=== PATIENT | female | born 1935 | race Caucasian/White ===

== ENCOUNTER → 2017-02-10 | Outpatient (CLI) | payer MEDICARE, OTHER ==
--- NOTE | 2017-02-10 16:46 | Diagnostic Imaging Report ---
CLINICAL INDICATION: Patient has total spine pain. No known injury and no previous spine surgery. EXAM: MRI of the cervical spine performed without IV contrast. Sequences include sagittal T1, sagittal T2, sagittal T2 fat-sat, and axial T2. COMPARISON: MRI of the cervical spine without contrast dated 08/16/2007. FINDINGS: There is no acute cervical spine fracture. There is no abnormal cervical vertebral T1 and T2 signal. There is no significant paraspinal soft tissue abnormality. Limited visualization of the posterior fossa is unremarkable. Cervical spinal cord has normal cord caliber and signal. There is multilevel cervical spine degenerative disease which has progressed compared to the prior study. C1-C2: There is increased size of the periodontal pannus. There are no gross erosive changes seen. C2-C3: Stable mild diffuse disc bulge with small posterior disc extrusion/herniation. There is progression of bilateral facet arthropathy which is mild. There is progression of ligamentum flavum buckling with mild central canal narrowing. There is no significant neuroforaminal narrowing. C3-C4: There is mild to moderate left facet arthropathy and mild right facet arthropathy which has progressed. There is mild bilateral neuroforaminal narrowing which has progressed. There is progression of ligamentum flavum buckling with mild central canal narrowing. C4-C5: There is interval development of moderate left facet arthropathy/hypertrophy and mild right facet arthropathy and ligamentum flavum buckling. There is mild to moderate central canal narrowing, moderate to severe left neuroforaminal narrowing and moderate right neuroforaminal narrowing which has slightly progressed. C5-C6: There is interval development of grade 1 retrolisthesis of C5 on C6. There is diffuse disc bulge with mild loss of intervertebral disc height and small disc spurs extending posteriorly and into the foraminal regions bilaterally. These findings have slightly progressed. Again seen ligamentum flavum buckling. There is moderate to severe central canal narrowing which has slightly progressed. There is severe right neuroforaminal narrowing and at least mild left neuroforaminal narrowing. C6-C7: There is interval development of diffuse disc bulge with small posterior disc extrusion/herniation which has slightly progressed. Again seen ligamentum flavum buckling with moderate to severe central canal narrowing which has slightly progressed. There is progression of now severe bilateral neuroforaminal narrowing. C7-T1: There is development of mild ligamentum flavum buckling, severe left facet arthropathy/hypertrophy, and moderate right facet arthropathy. There is mild central canal narrowing and at least moderate bilateral neuroforaminal narrowing. IMPRESSION: 1: There is overall progression of moderate to severe multilevel cervical spine degenerative disc disease which is described in detail above. 2: There is interval development of grade 1 retrolisthesis of C5 on C6. Dictated by: Dictated on workstation # [id number]
--- NOTE | 2017-02-10 17:20 | Diagnostic Imaging Report ---
CLINICAL INDICATION: Patient has total spine pain. No known injury. EXAM: MRI of the thoracic spine performed without IV contrast. Sequences include sagittal T1, sagittal T2, sagittal T2 fat-sat, and axial T2. COMPARISON: X-ray of the thoracic spine dated 01/14/2016. FINDINGS: There is no acute thoracic spine fracture or dislocation. There is mixed Modic type I/type II degenerative signal changes anteriorly seen from the T6 through T8 levels. There are thoracic spine degenerative spurs predominantly involving the T4 through T11 levels. There is no significant paraspinal soft tissue abnormality. The thoracic spinal cord has normal appearance with no abnormal cord signal changes. There is moderate loss of intervertebral disc height at the T9-T10 level and mild loss of intervertebral disc height at the T6 through T8 levels. There is a small posterior disc bulge at the T3-T4 and T10-T11 levels, which show no significant central canal narrowing. There are diffuse disc bulges with posterior disc protrusions/herniations at the T7-T8, T8-T9, and T9-T10 levels. There is also mild ligamentum flavum buckling at the T9-T10 level, which causes [id number] central canal narrowing at the T9-T10 level. The remainder of the other levels demonstrate only mild central canal narrowing. There is multilevel bilateral facet arthropathy. There is at least moderate bony neural foraminal narrowing involving the right T3-T4 and T4-T5 neural foramina. IMPRESSION: 1: There is no acute thoracic spine fracture or dislocation. 2: Multilevel thoracic spine degenerative disc disease, as described above. 3: There is [id number] central canal narrowing at the T9-T10 level due to diffuse disc bulge, posterior herniation, and ligamentum flavum buckling. 4: There is moderate right neural foraminal narrowing at the T3-T4 and T4-T5 levels. Dictated by: Dictated on workstation # [id number]
--- NOTE | 2017-02-10 17:28 | Diagnostic Imaging Report ---
PROCEDURE: MRI lumbar spine. TECHNIQUE: Multiplanar, multisequence MRI of the lumbar spine was performed without contrast. INDICATION: Pain along spine. Occasionally radiating into right leg. Comparison with 03/11/2016. FINDINGS: Good alignment of the vertebral bodies. Body heights well maintained. Marrow signal remains normal. Facets show good alignment without evidence of pars defect. The conus medullaris and cauda equina appear normal. L1-L2: The disc shows normal contour. Minimal facet hypertrophy with no stenosis. L2-L3: Disc shows normal contour with mild posterior facet and ligamentous hypertrophy without significant encroachment. L3-L4: There is desiccation of the disc with settling of the disc space. There is mild broad-based disc bulge with moderate posterior facet and ligamentous hypertrophy. This is causing mild to moderate encroachment upon the neuroforamen bilaterally. L4-L5: There is central disc herniation. There is posterior facet and ligamentous hypertrophy which is causing moderate encroachment upon the lateral recesses and neuroforamen bilaterally. Disc does protrude laterally into the neuroforamen bilaterally as well. L5-S1: Desiccation of the disc with some settling of the disc space. Mild broad-based disc bulge. Moderate posterior facet and ligamentous hypertrophy present causing mild to moderate encroachment upon the neuroforamen bilaterally. IMPRESSION: Degenerative disc disease L3-S1. Most prominent findings are at L4-L5 with central disc herniation as well as some lateral disc protrusion into the neuroforamen with associated facet and ligamentous hypertrophy causing moderate foraminal encroachment bilaterally. No central canal stenosis. The minimal AP central canal at L4-L5 is 9 mm. There has been mild progression of degenerative disc and hypertrophic facet changes at L4-L5 when compared with 02/2016 exam. Dictated by: Dictated on workstation # [id number]
== END ==
LOC: RAD 15:06
PROVIDERS: ATTEND Orthopaedic Surgery Orthopaedic Surgery of the Spine
DX: M51.37 Other intervertebral disc degeneration, lumbosacral region (principal); M51.34 Other intervertebral disc degeneration, thoracic region; M50.322 Other cervical disc degeneration at C5-C6 level; M51.26 Other intervertebral disc displacement, lumbar region; M51.24 Other intervertebral disc displacement, thoracic region; M48.04 Spinal stenosis, thoracic region; M43.12 Spondylolisthesis, cervical region
CPT/HCPCS: 72141; 72146; 72148

== ENCOUNTER → 2018-03-09 | Outpatient (CLI) | payer MEDICARE, OTHER ==
--- NOTE | 2018-03-09 14:40 | Diagnostic Imaging Report ---
CLINICAL INDICATION: Patient with radiculopathy. EXAM: MRI of the lumbar spine performed without IV contrast. Sagittal T2, sagittal T1, sagittal T2 fat-sat, and axial T2. COMPARISON: MRI of the lumbar spine without contrast dated 02/10/2017. FINDINGS: Five lumbar-type vertebrae are identified. Lumbar spine has normal alignment with no fracture or dislocation. There are minimal Modic type I degenerative signal changes involving the left lateral upper aspect of the L5 vertebra. Otherwise, the lumbar vertebrae have normal T1 and T2 signal. The visualized portions of the distal spinal cord, conus medullaris, and cauda equina have normal anatomic appearance. The conus medullaris tip is seen at the L1-L2 intervertebral level. No paraspinal soft tissue abnormality is seen. There are mildly hypertrophic spurs seen throughout the lumbar spine. There is multilevel lower lumbar facet arthropathy. L1-L2: There is a very subtle posterior disc bulge at the L1-L2 level. There is no significant central spinal canal or neural foramen narrowing. L2-L3: There is stable mild bilateral facet arthropathy. There is no significant central spinal canal or neural foramen narrowing. L3-L4: There is a stable mild diffuse disc bulge and mild bilateral facet arthropathy. There is stable minimal impression upon the thecal sac. There is stable mild to moderate bilateral neuroforaminal narrowing. Stable mild bilateral facet arthropathy. L4-L5: There is a diffuse disc bulge and interval increased size of the now moderate central posterior disc extrusion/herniation with caudal disc migration. The extruded material measures 9 mm x 10 mm x 12 mm (AP x Trans x CC). There is associated moderate encroachment upon the central canal. There is concern for impingement upon the non-exited bilateral L5 nerve roots. There is mild to moderate right neuroforaminal narrowing and moderate left neuroforaminal narrowing. L5-S1: Stable diffuse disc bulge with moderate loss of intervertebral disc height. There are disc spurs seen posteriorly and extending into the foraminal regions bilaterally. There is stable moderate to severe right neuroforaminal narrowing and moderate left neuroforaminal narrowing. There is no significant central canal narrowing. IMPRESSION: 1: Interval progression of L4-L5 posterior disc extrusion/herniation with now caudal disc migration. There is also concern for encroachment upon the non-exited bilateral L5 nerve roots. There is moderate central canal stenosis at the L4-L5 level. 2: The remainder of the lumbar spine degenerative changes have not significantly changed in the interim. Dictated by: Dictated on workstation # [id number]
== END ==
LOC: RAD 13:14
PROVIDERS: ATTEND Physician Assistant
DX: M48.061 Spinal stenosis, lumbar region without neurogenic claudication (principal); M47.816 Spondylosis without myelopathy or radiculopathy, lumbar region; M99.53 Intervertebral disc stenosis of neural canal of lumbar region; M51.26 Other intervertebral disc displacement, lumbar region
CPT/HCPCS: 72148

== ENCOUNTER → 2021-12-08 | Outpatient (CLI) | payer MEDICARE, OTHER ==
[~2021-12-08] MED LIST: IOHEXOL 350 MG/ML 100 ML (OMNIPAQUE 350) VIAL IV ONE; NS 100 ML (IVPB) BAG IV ONE
--- NOTE | 2021-12-08 12:15 | Diagnostic Imaging Report ---
EXAM: CTA neck. TECHNIQUE: 3D reconstructions, including MIPS, and the angiographic images are created and reviewed by the radiologist. All CT scans use one or more of the following dose optimizing techniques: automated exposure control, MA and/or KvP adjustment based on patient size and exam type or iterative reconstruction. INDICATION: Dizzy spells. Falling. Right carotid artery stenosis. COMPARISON: None available. FINDINGS: CTA of the neck demonstrates a conventional aortic arch. Calcified atherosclerotic disease results in 70 to 89% narrowing of the proximal right internal carotid artery which is retropharyngeal in its course. There is less than 50% narrowing of the left internal carotid artery origin. 50 to 69% narrowing of the right subclavian origin. The vertebral arteries are widely patent. No evidence of aneurysm or dissection in the neck. The visualized [place] is intact. Moderate spondylotic changes in the cervical spine. No high-grade spinal canal stenosis is evident by CT. No acute osseous findings. The mastoids are clear. Mild mucosal thickening in the partially visualized ethmoid sinuses. No acute findings in the neck. The lung apices are clear. IMPRESSION: 1. 70 to 89% narrowing of the right proximal internal carotid artery. 2. 50 to 69% narrowing of the right subclavian artery origin. Dictated by: Dictated on workstation # [id number]
== END ==
LOC: RAD 10:15
PROVIDERS: ATTEND Nurse Practitioner
DX: I65.23 Occlusion and stenosis of bilateral carotid arteries (principal); I25.10 Atherosclerotic heart disease of native coronary artery without angina pectoris
CPT/HCPCS: 70498

== ENCOUNTER → 2023-04-11 | Outpatient (CLI) | payer MEDICARE ==
--- NOTE | 2023-04-11 16:33 | Diagnostic Imaging Report ---
INDICATION: Decreased breath sounds at left lung base. TECHNIQUE: Two view chest 12:59 PM CORRELATION STUDY: 04/11/2023 FINDINGS: Poststernotomy with prior coronary artery bypass. Heart size and mediastinum are enlarged and prominent throughout the course of the thoracic aorta. Vasculature overall within normal limits. Elevated left diaphragm. Infiltrate and/or atelectasis along with small effusion left lung base. Right lung generally clear. Cholecystectomy clips, right upper quadrant abdomen. Additional clips at the base of the neck on the right. Mildly to moderately advanced degenerative changes of the thoracic spine. IMPRESSION: 1. A combination of infiltrate and/or atelectasis along with small left pleural effusion. Also with elevated left diaphragm. Prior sternotomy. Dictated by: Dictated on workstation # [id number]
== END ==
LOC: CARD 12:06
PROVIDERS: ATTEND Nurse Practitioner Family
DX: I35.0 Nonrheumatic aortic (valve) stenosis (principal); R91.8 Other nonspecific abnormal finding of lung field; J90 Pleural effusion, not elsewhere classified; Q79.1 Other congenital malformations of diaphragm; Z98.890 Other specified postprocedural states
CPT/HCPCS: 71046; C8929; 93306